=== PATIENT | female | born 1955 | race Native Hawaiian/Other Pacific Islander ===

== ENCOUNTER 2018-06-06 09:15 | Outpatient (CLI) | payer OTHER | END 2018-06-06 21:48 | disposition home or self-care (01) | LOC: RAD 09:15 | DX: Z02.71 Encounter for disability determination (principal); G62.9 Polyneuropathy, unspecified; M19.049 Primary osteoarthritis, unspecified hand ==

== ENCOUNTER 2018-12-09 08:05 | Outpatient (CLI) | payer OTHER | END 2018-12-09 22:08 | disposition home or self-care (01) | LOC: MAMMO 08:05 | DX: Z12.31 Encounter for screening mammogram for malignant neoplasm of breast (principal) ==

== ENCOUNTER 2018-12-23 08:32 | Outpatient (CLI) | payer OTHER | END 2018-12-23 19:19 | disposition home or self-care (01) | LOC: MAMMO 08:32 | DX: R92.8 Other abnormal and inconclusive findings on diagnostic imaging of breast (principal) ==

== ENCOUNTER 2019-02-21 15:42 | Outpatient (CLI) | payer OTHER ==
[2019-02-21 15:52] LABS: PLATELET COUNT 380 K/uL (152-353)
== END 2019-02-21 22:20 | disposition home or self-care (01) ==
LOC: LAB 15:42
PROVIDERS: Family Medicine
DX: E11.9 Type 2 diabetes mellitus without complications (principal); D72.829 Elevated white blood cell count, unspecified
CPT/HCPCS: 83036; 85027

== ENCOUNTER 2019-03-01 08:08 | Outpatient (CLI) | payer OTHER | END 2019-03-01 22:24 | disposition home or self-care (01) | LOC: LABW 08:08 | DX: M25.552 Pain in left hip (principal); M25.561 Pain in right knee ==

== ENCOUNTER 2019-03-04 14:45 | Outpatient (CLI) | payer OTHER | END 2019-03-04 21:50 | disposition home or self-care (01) | LOC: LABW 14:45 | DX: R19.7 Diarrhea, unspecified (principal); D72.829 Elevated white blood cell count, unspecified | CPT/HCPCS: 87507 ==

== ENCOUNTER 2019-06-08 12:39 | Outpatient (CLI) | payer OTHER | END 2019-06-08 21:31 | disposition home or self-care (01) | LOC: MAMMO 12:39 | DX: R92.8 Other abnormal and inconclusive findings on diagnostic imaging of breast (principal) | CPT/HCPCS: G0279 ==

== ENCOUNTER 2019-06-22 13:17 | Outpatient (CLI) | payer OTHER ==
[2019-06-22 13:45] LABS: PLATELET COUNT 436 K/uL (152-353)
[2019-06-22 14:16] LABS: POTASSIUM 5.3 mmol/L (3.6-5.2)
== END 2019-06-22 19:02 | disposition home or self-care (01) ==
LOC: LAB 13:17
PROVIDERS: Family Medicine
DX: E11.9 Type 2 diabetes mellitus without complications (principal); I10 Essential (primary) hypertension; E78.5 Hyperlipidemia, unspecified
CPT/HCPCS: 80053; 80061; 82043; 82570; 83036; 84439; 84443; 84481; 85027

== ENCOUNTER 2020-01-04 14:19 | Outpatient (CLI) | payer OTHER | END 2020-01-04 20:14 | disposition home or self-care (01) | LOC: MAMMO 14:19 | DX: R92.8 Other abnormal and inconclusive findings on diagnostic imaging of breast (principal) | CPT/HCPCS: G0279 ==

== ENCOUNTER 2020-02-23 15:06 | Outpatient (CLI) | payer OTHER | END 2020-02-23 19:24 | disposition home or self-care (01) | LOC: LAB 15:06 | PROVIDERS: ATTEND Nurse Practitioner Family | DX: E11.9 Type 2 diabetes mellitus without complications (principal); I10 Essential (primary) hypertension; E78.5 Hyperlipidemia, unspecified; E55.9 Vitamin D deficiency, unspecified | CPT/HCPCS: 36415; 84439; 84443; 84479; 84481 ==

== ENCOUNTER 2020-05-08 08:52 | Emergency (ER) | payer OTHER ==
[~2020-05-08] VITALS: Ht 154.9 cm; Wt 113.4 kg
[2020-05-08 09:03] VITALS: BP 141/69; TEMP 97.2
[2020-05-08 09:34] LABS: PLATELET COUNT 351 K/uL (152-353)
[2020-05-08 09:40] LABS: POTASSIUM 4.1 mmol/L (3.6-5.2)
== END 2020-05-08 10:34 | disposition home or self-care (01) ==
LOC: ED 08:52
PROVIDERS: Family Medicine
DX: M16.0 Bilateral primary osteoarthritis of hip (principal)
CPT/HCPCS: 80053; 81000; 85027; 99283

== ENCOUNTER 2022-07-07 08:45 | Outpatient (CLI) | payer OTHER | END 2022-07-07 22:04 | LOC: RAD 08:45 | PROVIDERS: ATTEND Internal Medicine | DX: M06.4 Inflammatory polyarthropathy (principal); M79.643 Pain in unspecified hand; M79.673 Pain in unspecified foot ==